=== PATIENT | female | born 1950 | race Hispanic/Latino ===

== ENCOUNTER → 2018-12-09 | Outpatient (CLI) | payer OTHER ==
[~2018-12-09] MED LIST: IOHEXOL-350 50ML VIAL IV ONE
== END | disposition home or self-care (01) ==
LOC: RAH 13:16
PROVIDERS: ATTEND Family Medicine
DX: J98.6 Disorders of diaphragm (principal); N20.0 Calculus of kidney
CPT/HCPCS: 71270; Q9967